=== PATIENT | male | born 1995 | race Caucasian/White ===

== ENCOUNTER 2018-06-02 22:11 | Emergency (ER) | payer MEDICAID ==
[~2018-06-02] VITALS: Ht 152.4 cm; Wt 87.4 kg
[2018-06-02] MEDS ORDERED: ondansetron 4mg rapidly disintigrating tab PO ONE (23:35)
[2018-06-02] MEDS ORDERED: aspirin 81mg tab.chew PO ONE (23:35)
[2018-06-03 00:02] LABS: BASOPHILS % (AUTO) 0.4 % (0-1); EOSINOPHILS # (AUTO) 0.2 X10'3 (0-0.9); EOSINOPHILS % (AUTO) 3.4 % (0-6); HEMATOCRIT 53.5 % (42.0-52.0); HEMOGLOBIN 17.8 g/dl (14.0-17.9); LYMPHOCYTES # (AUTO) 1.6 X10'3 (1.1-4.8); LYMPHOCYTES % (AUTO) 23.5 % (21-51); MEAN CORPUSCULAR HEMOGLOBIN 31.4 PG (27.0-31.0); MEAN CORPUSCULAR HGB CONC 33.3 % (33.0-36.5); MEAN CORPUSCULAR VOLUME 94.1 FL (78-98); MEAN PLATELET VOLUME 8.2 FL (7.4-10.4); MONOCYTES # (AUTO) 0.5 X10'3 (0-0.9); NEUTROPHILS # (AUTO) 4.6 X10'3 (1.8-7.7); NEUTROPHILS % (AUTO) 65.7 % (42-75); PLATELET COUNT 191 X10'3 (140-440); RED BLOOD COUNT 5.69 X10'6 (4.70-6.10); WHITE BLOOD COUNT 6.9 X10'3 (4.5-11.0)
[2018-06-03 00:18] LABS: ALANINE AMINOTRANSFERASE 57 U/L (12-78); ALBUMIN 3.8 G/DL (3.4-5.0); ALKALINE PHOSPHATASE 113 IU/L (46-116); ANION GAP 8 (8-16); BILIRUBIN,TOTAL 0.4 MG/DL (0.1-1.0); BLOOD UREA NITROGEN 11 MG/DL (7-18); BUN/CREATININE RATIO 11.1 (5.4-32.0); CALCIUM 9.1 MG/DL (8.5-10.1); CHLORIDE 104 MMOL/L (99-107); CREATININE 0.99 MG/DL (0.60-1.10); GLUCOSE 106 MG/DL (70-104); SODIUM 140 MMOL/L (135-145); TOTAL PROTEIN 7.8 G/DL (6.4-8.2); eGFR > 90 ML/MIN
[2018-06-03] MEDS ORDERED: pantoprazole 40 MG vial IV ONE (00:20)
[2018-06-03] MEDS ORDERED: famotidine 20mg tablet PO ONE (00:20)
[2018-06-03] MEDS ORDERED: mag hydrox/Alum hydrox/simeth 30ml oral suspension PO ONE (00:20)
[2018-06-03 00:21] LABS: POTASSIUM 3.9 MMOL/L (3.5-5.1)
[2018-06-03 00:22] LABS: ASPARTATE AMINO TRANSFERASE 31 U/L (10-37)
[2018-06-03 00:25] LABS: MAGNESIUM 1.9 MG/DL (1.5-2.4)
[2018-06-03] MEDS ORDERED: ondansetron/PF 4mg/2ml inj IV ONE (00:45)
[2018-06-03] MEDS ORDERED: ketorolac trometh. 30mg/ml inj. IV ONE (00:45)
[2018-06-03 02:07] LABS: D-DIMER 0.64 MG/L FEU (0-0.50)
[2018-06-03] MEDS ORDERED: iohexol 350MG/ML 100ml bottle IV ONE (02:38)
[2018-06-03 04:22] VITALS: BP 127/80
== END 2018-06-03 04:24 | disposition home or self-care (01) ==
LOC: ER 22:15
DX: R07.89 Other chest pain (principal); Q90.9 Down syndrome, unspecified; Z98.890 Other specified postprocedural states
CPT/HCPCS: 36415; 71045; 71275; 80053; 83735; 83880; 84484; 85025; 85379; 93005; 96374; 96375; 99284; C9113; J1885; J2405; Q9967